=== PATIENT | female | born 1950 | race Caucasian/White ===

== ENCOUNTER → 2017-04-17 | Outpatient (CLI) | payer MEDICARE ==
[~2017-04-17] MED LIST: IOPAMIDOL 370 MG/ML 200 ML INFUS..BTL INJ ONE; SODIUM CHLORIDE 0.9% 50ML 100 ML ONE
[2017-04-17 13:58] LABS: BLOOD UREA NITROGEN 35 mg/dL (7-26); BUN/CREATININE RATIO 38 (6-25); CREATININE, SERUM 0.91 mg/dL (0.57-1.11); EST GLOMERULAR FILTRATION RATE > 60 ML/MIN (60-)
--- NOTE | 2017-04-18 12:25 | Diagnostic Imaging Report ---
Examination: Cervical and Intracranial CT Angiogram with Contrast History: Lumpiness of the left side. Comparison studies: None Technique: Axial images were obtained from the thoracic inlet. Coronal and sagittal images reconstructed from the axial data. Intravenous contrast: 100 mL of Isovue-370. Degree of stenosis at the carotid bulbs, if present, will be calculated using NASCET criteria where the smallest diameter at the location of stenosis is compared to the diameter of the more distal non-diseased vessel lumen. Findings: CTA neck: Aortic arch and major vessels: Patent. Nonstenotic atherosclerotic calcification Common carotid arteries: Patent. Retropharyngeal course of the distal right common carotid artery. Cervical carotid bifurcations: Right: Patent with nonstenotic calcification posteriorly. Retropharyngeal course. Left :Patent with nonstenotic near circumferential mixed plaque. Internal carotid arteries: Right: Patent. Nonstenotic atherosclerotic calcification of the distal cervical segment on the right. Left: Patent. Vertebral arteries: Patent. CTA head: Internal carotid arteries: Severe stenosis (greater than 70%) of the lacerum segment due to calcific plaque. Severe stenosis (greater than 70%) of the cavernous segment on the left due to near circumferential mixed plaque. Nonstenotic atherosclerotic calcification of the ophthalmic and clinoid segments bilaterally. Anterior cerebral arteries: Patent bilateral A1 and A2 segments. Middle cerebral arteries: Patent bilateral M1 and M2 segments. Posterior cerebral arteries: Patent. Vertebro-basilar system: Patent. Anatomical variants: Anterior communicating artery :Not visualized. Posterior communicating arteries: Patent bilaterally. Vertebral arteries: Right dominant IMPRESSION: 1. Severe stenosis (greater than 70%) of the lacerum segment of the right internal carotid artery and severe stenosis (greater than 70%) of the cavernous segment of the left internal carotid artery. 2. Nonstenotic atherosclerotic calcification of the aortic arch, right common carotid artery distally, bilateral carotid bifurcations, distal cervical segment of the right internal carotid artery and bilateral ophthalmic and clinoid segments. Signed by: Dr. Lauren Astorga M.D. on 04/18/2017 12:21 PM
== END ==
LOC: CT 12:49
PROVIDERS: ATTEND Internal Medicine Interventional Cardiology
DX: I65.23 Occlusion and stenosis of bilateral carotid arteries (principal)
CPT/HCPCS: 36415; 70496; 70498; 82565; 84520; Q9967

== ENCOUNTER → 2017-06-27 | Outpatient (CLI) | payer MEDICARE ==
[~2017-06-27] MED LIST changes: +GADOBENATE DIMEGLUMINE 0 ML IV ONE; -IOPAMIDOL 370 MG/ML 200 ML INFUS..BTL INJ ONE; -SODIUM CHLORIDE 0.9% 50ML 100 ML ONE
[2017-06-27 16:24] LABS: BLOOD UREA NITROGEN 34 mg/dL (7-26); BUN/CREATININE RATIO 41 (6-25); CREATININE, SERUM 0.82 mg/dL (0.57-1.11); EST GLOMERULAR FILTRATION RATE > 60 ML/MIN (60-)
== END ==
LOC: MRI 13:13
PROVIDERS: ATTEND Student in an Organized Health Care Education/Training Program
DX: Z01.818 Encounter for other preprocedural examination (principal); H93.12 Tinnitus, left ear
CPT/HCPCS: 36415; 82565; 84520

== ENCOUNTER → 2017-07-28 | Outpatient (CLI) | payer MEDICARE ==
[~2017-07-28] MED LIST changes: -GADOBENATE DIMEGLUMINE 0 ML IV ONE; +GADOBENATE DIMEGLUMINE 1 ML IV ONE; +LORAZEPAM INJ 2 MG/ML VIAL ONE
--- NOTE | 2017-07-28 17:29 | Diagnostic Imaging Report ---
EXAMINATION: MRI of the brain with and without contrast HISTORY: Left ear pulsatile tinnitus COMPARISON: Head CT on 04/17/2017 TECHNIQUE: Pre-contrast: Sagittal T2; axial T1-IR, T2, MPGR, DWI, FLAIR; Post-contrast: axial and coronal T1. Intravenous contrast: 20 mL of MultiHance. IMAGE QUALITY: Adequate. FINDINGS: Parenchyma: 1. Multiple periventricular, suarez radiata and centrum semiovale white matter T2 and FLAIR hyperintensities, some of the hyperintense foci are perpendicular to the wall of the lateral ventricles in the callosal septal interface, there is also an oval-shaped lesion near the right genu of the corpus callosum. Even though some of these lesions follow the distribution of demyelinating lesions; the presence of additional lacunar infarct favors chronic microvascular ischemic changes as the etiology 2. Small chronic lacunar infarcts in the bilateral suarez radiata, thalami an left putamen. 3. No mass or hemorrhage. No acute or chronic vascular insult. No abnormal enhancement. Skull: No abnormal signal intensity or enhancement. Major arteries: Expected flow voids present. Dural sinuses: Expected flow voids present. Ventricles: No hydrocephalus or displacement. Subarachnoid spaces: No abnormal signal intensity or enhancement. Brain volume: Normal for age. Foramen magnum: No mass, Chiari malformation, or basilar invagination. Sella: No gross mass. Paranasal/mastoid sinuses: Unremarkable. IMPRESSION: 1. Mild chronic microvascular ischemic changes. 2. Multiple small chronic lacunar infarct as detailed above. Signed by: Dr. Emperatriz Miller M.D. on 07/28/2017 5:25 PM
== END ==
LOC: MRI 15:07
PROVIDERS: ATTEND Student in an Organized Health Care Education/Training Program
DX: H93.12 Tinnitus, left ear (principal)
CPT/HCPCS: 36415; 70553; 82948; J2060

== ENCOUNTER 2017-11-28 06:35 | Observation (INO) | payer MEDICARE ==
--- NOTE | 2017-11-27 13:06 | Diagnostic Imaging Report ---
PROCEDURE: Frontal and lateral views of the chest. COMPARISON: None. INDICATIONS: PRE-OPERATIVE /KNEE SURGERY FINDINGS: Lines/tubes: None. Lungs: The lungs are well inflated and clear. There is no evidence of pneumonia or pulmonary edema. Pleura: There is no pleural effusion or pneumothorax. Heart and mediastinum: The cardiac silhouette is prominent. Surgical clips overlying the left lower lung field. Bones: No acute bony abnormality. Left upper quadrant suture line. IMPRESSION: 1. No acute cardiopulmonary disease. Dictated by: Lucho Martinez M.D. on 11/27/2017 at 13:13 Electronically approved by: Lucho Martinez M.D. on 11/27/2017 at 13:13
[2017-11-27 13:14] LABS: BASOPHILS # (AUTO) 0.1 (0.0-0.1); BASOPHILS % 0.7 % (0.0-1.0); EOSINOPHILS # (AUTO) 0.3 (0.0-0.4); HEMATOCRIT 44.2 % (34.2-44.1); HEMOGLOBIN 14.5 g/dL (12.0-16.0); LYMPHOCYTES # (AUTO) 3.4 (1.0-3.2); LYMPHOCYTES % 32.2 % (18.0-39.1); MEAN CORPUSCULAR HEMOGLOBIN 30.1 pg (28-32); MEAN CORPUSCULAR HGB CONC 32.8 g/dL (31-35); MEAN CORPUSCULAR VOLUME 91.9 fL (81-99); MONOCYTES # (AUTO) 0.7 (0.2-0.8); MONOCYTES % 6.2 % (4.4-11.3); NEUTROPHILS # (AUTO) 6.1 (2.1-6.9); NEUTROPHILS % 57.5 % (38.7-80.0); PLATELET COUNT 377 x10e3/uL (140-360); RED BLOOD COUNT 4.81 x10e6/uL (3.6-5.1); RED CELL DISTRIBUTION WIDTH 12.9 % (11.7-14.4)
[2017-11-27 13:32] LABS: ANION GAP 15.1 mmol/L (8-16); BLOOD UREA NITROGEN 30 mg/dL (7-26); BUN/CREATININE RATIO 39 (6-25); CALCIUM 9.6 mg/dL (8.4-10.2); CARBON DIOXIDE 25 mmol/L (22-29); CHLORIDE 107 mmol/L (98-107); CREATININE, SERUM 0.76 mg/dL (0.57-1.11); EST GLOMERULAR FILTRATION RATE > 60 ML/MIN (60-); GLUCOSE 114 mg/dL (74-118); POTASSIUM 4.1 mmol/L (3.5-5.1); SODIUM 143 mmol/L (136-145)
[~2017-11-28] VITALS: Ht 157.5 cm; Wt 106.6 kg
[~2017-11-28 06:35] MED LIST changes: +AMLODIPINE BESY10 MG PO; +ASPIR 8181 MG PO; +B COMPLEX1 EACH PO; +BUPROPION HCL100 MG PO; +BYSTOLIC10 MG PO; +CALCIUM MG ZINC PO; +CENTRUM SILVER1 EAC3 PO; +CLOPIDOGREL75 MG PO; +FUROSEMIDE40 MG PO; +GABAPENTIN300 MG PO; -GADOBENATE DIMEGLUMINE 1 ML IV ONE; +HERBAL LAXATIVE PO; +HYDROCHLOROTHIA25 MG PO; +IBUPROFEN200 MG PO; +LEVAMIR SC; -LORAZEPAM INJ 2 MG/ML VIAL ONE; +LOSARTAN POTAS100 MG PO; +METOPROLOL SUCC50 MG PO; +NOVOLOG100 UNITS1 SC; +SIMVASTATIN40 MG PO; +VITAMIN B-125000 MCG PO; +VITAMIN B12-FO1 EACH PO; +VITAMIN C500 MG/15 PO
[2017-11-28] MEDS ORDERED: BACITRACIN 50,000 UNIT VIAL ONE (06:59)
[2017-11-28] MEDS ORDERED: MUPIROCIN 2% OINT 22 GM TUBE ONE (06:59)
[2017-11-28] MEDS ORDERED: TRANEXAMIC ACID 1,000 MG/10 ML ML ONE (06:59)
[2017-11-28] MEDS ORDERED: DEXAMETHASONE SOD PHOS 10 MG/1 ML VIAL ONE (07:09)
[2017-11-28] MEDS ORDERED: CELECOXIB 200 MG CAP ONE (07:09)
[2017-11-28] MEDS ORDERED: GABAPENTIN 300 MG CAP ONE (07:09)
[2017-11-28] MEDS ORDERED: CEFAZOLIN SOD 2 GM/D5W 50ML 50 ML IV ONE (07:10)
[2017-11-28] MEDS ORDERED: ROPIVACAINE 246.25 MG, EPINEPHRINE HCL 1:1000 0.5 MG, CLONIDINE HCL 0.08 MG, KETOROLAC ... INJ ONE ×5 (08:00)
[2017-11-28] MEDS ORDERED: SODIUM CHLORIDE 0.9% 1000ML 1,000 ML IV SCH (10:05)
[2017-11-28] MEDS ORDERED: ZOLPIDEM TARTRATE 5 MG TAB PO PRN (10:15)
[2017-11-28] MEDS ORDERED: DOCUSATE SODIUM 100 MG CAP PO PRN (10:15)
[2017-11-28] MEDS ORDERED: HYDROCODONE/APAP 5MG-325MG TAB PO PRN (10:15)
[2017-11-28] MEDS ORDERED: DIPHENHYDRAMINE HCL INJ 50 MG/ML VIAL IM/IV PRN (10:15)
[2017-11-28] MEDS ORDERED: KETOROLAC TROMETHAMINE 30 MG/ML VIAL IV PRN (10:15)
[2017-11-28] MEDS ORDERED: ONDANSETRON HCL INJ 2 MG/ML VIAL IV PRN (10:15)
[2017-11-28] MEDS ORDERED: PROMETHAZINE HCL (IM) 25 MG/ML VIAL INJ PRN (10:15)
[2017-11-28] MEDS ORDERED: ACETAMINOPHEN 650 MG SUPP PR PRN (10:15)
[2017-11-28] MEDS ORDERED: HYDROMORPHONE 1MG/1ML INJ ONE (10:34)
[2017-11-28] MEDS ORDERED: FENTANYL CITRATE/PF 100MCG/2 ML INJ ONE ×2 (10:58→18:33)
--- NOTE | 2017-11-28 12:29 | Diagnostic Imaging Report ---
PROCEDURE: X-RAY LEFT KNEE, ONE OR TWO VIEWS COMPARISON: None. INDICATIONS:POST OPERATIVE FOR LEFT KNEE SURGERY FINDINGS: See conclusion. CONCLUSION: Status post total left knee replacement with surrounding soft tissue swelling, air and eileen consistent with recent surgery. No acute fractures. Russell Tinoco D.O. Dictated by: Russell Tinoco D.O. on 11/28/2017 at 11:08 Electronically approved by: Russell Tinoco D.O. on 11/28/2017 at 12:35
--- NOTE | 2017-11-28 13:00 | Operative Report ---
DATE OF PROCEDURE: November 28, 2017 BAR EXAMINER: Colin Shanks PA-C The patient was brought to the operating room for induction of anesthesia. Throughout this case, my PA's assistance was necessary for retraction of soft tissue and positioning of the extremity. This allows for efficient and technically successful execution of the operation and is considered medically necessary. PREOPERATIVE DIAGNOSES 1. Osteoarthritis, left knee. 2. Morbid obesity. POSTOPERATIVE DIAGNOSES 1. Osteoarthritis, left knee. 2. Morbid obesity. PROCEDURE PERFORMED: Left total knee arthroplasty *added complexity secondary to body mass index of 43. INDICATIONS: The patient is a 67-year-old lady who has end-stage arthritis of her left knee. She has failed conservative management and would like to proceed with a left total knee replacement. The risks and benefits of the procedure have been explained. The added surgical changes and risk for perioperative complications due to her BMI of 43 has been explained. She states she understands and feels like she has no other choice. She has been through gastric sleeve surgery. She states she understands and wishes to proceed. PROCEDURE: The patient was brought to the operating room and placed under general anesthetic. She received a regional block, prophylactic antibiotics, and tranexamic acid in the holding area. Her left lower extremity was prepped and draped in a sterile manner. Added time and personnel was necessary due to the patient's size. The extremity was exsanguinated and a proximal tourniquet was inflated to 350 mmHg. An anterior approach with a medial parapatellar arthrotomy was performed. Slightly more extensile approach was necessary. Soft tissue releases were performed to bring the knee up into flexion with the patella everted. Minimal medial and lateral dissections were performed to diminish the possibility of space. The cruciate ligaments, meniscal remnants, and marginal osteophytes were removed. A [employer] Kerry II posterior stabilized knee system was used. An extramedullary cutting guide was used to resect the proximal tibia. Some difficulty was encountered due to the abundant anterior soft tissue. Some of the cut had to be done freehand. The tibial baseplate was a size #3. The central fin punch was impacted. A drop kandi was used to check the alignment. The drop kandi was noted to align right with the first webspace and was felt to be appropriate. Attention was then directed towards the distal femur. An intramedullary cutting guide was used to resect the distal femur in 6 degrees of valgus and rotation referencing off of a combination landmarks including Griffin's line, the epicondylar axis, and the posterior condyles. The femoral component was a size #4. The anterior and posterior cuts were made. Trial reductions were performed. I felt a 9 mm ultra-congruent tibial insert provided appropriate soft tissue balancing in flexion and extension. The patella was resurfaced with a 29 mm x 9 mm patellar button. The thickness was checked before and after and was right around 22 mm. Patellar tracking was noted to be concentric. The trial implants were then all removed. A 100 mL premixed pericapsular SONYA injection was placed into the surrounding soft tissue. The knee was thoroughly irrigated with a shower-tip pulsatile lavage. The components were cemented into place using a single mix of PALACOS cement preloaded with antibiotics. Care was taken to remove extravasated cement. The wound was further irrigated while the cement cured. The arthrotomy was closed with interrupted #1 Ethibond. The knee was put through flexion and extension to ensure a secure closure. The skin was closed subcuticular Vicryl and eileen. A sterile Prevena Wound VAC was applied due to the abundant subcutaneous adipose tissue. The patient was extubated and transported to the recovery room in stable condition. Blood loss was minimal. All needle and sponge counts were correct. Job#: [id number] VAS
[2017-11-28] MEDS ORDERED: CEFAZOLIN SOD 1 GM/D5W 50ML 50 ML IV SCH (14:00)
[2017-11-28 14:15] VITALS: BP 140/64
[2017-11-28 14:25] VITALS: BP 140/64
[2017-11-28] MEDS ORDERED: CELECOXIB 100 MG CAP PO SCH (17:00)
[2017-11-28] MEDS ORDERED: DEXTROSE 50% SYRINGE 50 ML IV PRN (17:15)
[2017-11-28] MEDS: ACETAMINOPHEN 1000 MG/100 ML IV SCH (17:43)
[2017-11-28] MEDS: ASPIRIN 325 MG TAB PO SCH (17:44)
[2017-11-28] MEDS: CEFAZOLIN SOD 1 GM VIAL IV SCH (17:44)
[2017-11-28] MEDS: CELECOXIB 200 MG CAP PO SCH (17:44)
[2017-11-28] MEDS ORDERED: MIDAZOLAM HCL 2 MG/2 ML VIAL ONE (18:33)
[2017-11-28] MEDS ORDERED: ONDANSETRON HCL INJ 2 MG/ML VIAL ONE (18:48)
[2017-11-28] MEDS ORDERED: DEXAMETHASONE SOD PHOS INJ 4 MG/ML VIAL ONE (18:48)
[2017-11-28] MEDS ORDERED: SEVOFLURANE INHAL SOLN 250 ML PEN BTL ONE (18:48)
[2017-11-28] MEDS ORDERED: KETOROLAC TROMETHAMINE 30 MG/ML VIAL ONE (18:48)
[2017-11-28] MEDS ORDERED: PROPOFOL IV EMULSION 10 MG/ML 20 ML VIAL ONE (18:48)
[2017-11-28] MEDS ORDERED: ROPIVACAINE 0.5% 5 MG/ML 30 ML SDV ONE (18:51)
[2017-11-28] MEDS ORDERED: LIDOCAINE 2% /EPINEPHRINE 20 ML SDV INJ ONE (18:51)
[2017-11-28 20:00] VITALS: BP 135/73
[2017-11-28 20:25] VITALS: BP 127/61
[2017-11-28] MEDS: INSULIN LISPRO 100 UNIT/1 ML 3ML VIAL SQ SCH (21:04)
[2017-11-28] MEDS: HYDROCODONE/APAP 7.5MG-325MG 1 EA TAB PO PRN (22:02)
[2017-11-29] VITALS: BP 134/64
[2017-11-29] MEDS: HYDROCODONE/APAP 7.5MG-325MG 1 EA TAB PO PRN ×4 (02:00→15:06)
[2017-11-29 04:00] VITALS: BP 150/64
[2017-11-29] MEDS: ACETAMINOPHEN 1000 MG/100 ML IV SCH ×2 (05:15)
[2017-11-29 05:32] LABS: HEMATOCRIT 38.7 % (34.2-44.1); HEMOGLOBIN 12.5 g/dL (12.0-16.0)
[2017-11-29 08:00] VITALS: BP 161/67
[2017-11-29 08:09] VITALS: BP 161/67
[2017-11-29] MEDS: ASPIRIN 325 MG TAB PO SCH (08:16)
[2017-11-29] MEDS: CELECOXIB 200 MG CAP PO SCH (08:16)
[2017-11-29] MEDS: CEFAZOLIN SOD 1 GM VIAL IV SCH ×2 (08:16)
[2017-11-29] MEDS: INSULIN LISPRO 100 UNIT/1 ML 3ML VIAL SQ SCH ×3 (08:20→16:22)
[2017-11-29] MEDS ORDERED: ACETAMINOPHEN 1000 MG/100 ML IV PRN (10:15)
[2017-11-29] MEDS ORDERED: GABAPENTIN 300 MG CAP PO SCH (10:45)
[2017-11-29] MEDS ORDERED: GABAPENTIN 300 MG CAP PO PRN (11:15)
--- NOTE | 2017-11-29 11:23 | Consultation ---
DATE OF CONSULTATION: November 29, 2017 REASON FOR CONSULTATION: Medical management. HISTORY OF PRESENT ILLNESS: This is a 67-year-old white woman who underwent successful left total knee replacement yesterday on Tuesday, November 28, 2017. The patient has underlying history of extreme obesity, hypertension, and type-2 diabetes mellitus. The patient states her pain is well controlled. The patient did ambulate with physical therapy yesterday and today, but she requires maximum assistance. The patient states she is and lives alone. Blood work done today revealed hemoglobin 12.5 g/dL. The patient's BUN and creatinine on November 27, 2017, were 30 and 0.76 respectively. The patient underwent a chest x-ray on November 27, 2017, which revealed a prominent cardiac silhouette. Otherwise, it was unremarkable. REVIEW OF SYSTEMS GENERAL: The patient has lost 35 pounds since February 2017, but she did undergo bariatric surgery at that time. No fever or chills. HEENT: No headache. No vision changes. CARDIOVASCULAR: No chest pain. No shortness of breath. She has a slight chronic cough. GI: No nausea, vomiting, or constipation. : No UTI symptoms. NEUROMUSCULAR: The patient states her pain is well controlled in her left surgical knee, but she has arthritic pain in her right knee. ALLERGIES: NO KNOWN DRUG ALLERGIES. PAST MEDICAL HISTORY 1. Hypertensive heart disease. 2. Type-2 diabetes mellitus. 3. Extreme obesity. 4. Previous heavy tobacco smoker. 5. Peripheral arterial disease. 6. Dyslipidemia. 7. Diabetic peripheral neuropathy. 8. Chronic diastolic congestive heart failure. SURGICAL HISTORY 1. Left total knee replacement on November 28, 2017. 2. Laparoscopic cholecystectomy. 3. Right breast lumpectomy (benign). 4. Left lower extremity angioplasty in June 2017. 5. Cataract surgery. FAMILY HISTORY: The patient has a history of hypertension and type-2 diabetes mellitus. SOCIAL HISTORY: This woman is . She lives alone. 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 She was a smoker, but quit in 2004. Denies any alcohol use. HOME MEDICATIONS 1. Amlodipine 10 mg a day. 2. Aspirin 81 mg a day. 3. Bupropion 300 mg daily. 4. Clopidogrel 75 mg daily. 5. Vitamin B12 5,000 mcg daily. 6. Furosemide 20 mg daily. 7. Gabapentin 300 mg daily. 8. Hydrochlorothiazide 25 mg daily. 9. Ibuprofen 200 mg 2 pills every 6 hours prn arthritic joint pain. 10. NovoLog insulin subcutaneous as needed. 11. Losartan 100 mg nightly. 12. Metoprolol succinate 50 mg daily. 13. Centrum Silver once daily. 14. Bystolic 10 mg p.o. daily. 15. Simvastatin 40 mg nightly. 16. Vitamin C 500 mg daily. 17. Vitamin B complex once daily. 18. Calcium, magnesium and zinc complex once daily. 19. Herbal laxative once daily. 20. Levemir insulin 40 units subcutaneous daily. PHYSICAL EXAMINATION GENERAL: She is awake, alert and fully oriented. She is very pleasant and cooperative with exam. VITAL SIGNS: Height 5 feet 2 inches, weight 235 pounds. BMI is 43. Blood pressure is 168/70. Pulse 72. Respiratory rate 18. Temperature 95.8. Oxygen saturation is 97% on room air. INTEGUMENT: Skin is warm and dry. No pallor, jaundice or diaphoresis. HEENT: Anicteric sclerae with moist mucous membranes. NECK: Supple. CARDIOVASCULAR: Distant heart sounds. Regular rate and rhythm. LUNGS: No rales, no rhonchi, no wheezing. ABDOMEN: Obese, benign. EXTREMITIES: The left knee is currently dressed. The patient is currently wearing compression stockings. No obvious edema is appreciated. NEUROLOGIC: Intact, except she does have numbness in the plantar aspect of bilateral feet. DIAGNOSES 1. Status post left total knee replacement. 2. Peripheral arterial disease. 3. Type-2 diabetes mellitus with neuropathy. 4. Hypertensive heart disease. 5. Extreme obesity. Body mass index 43. 6. Chronic diastolic congestive heart failure. PLAN 1. Pain control. 2. Mobilize with physical therapy. 3. Will continue clopidogrel and aspirin since the patient has peripheral arterial disease. 4. Will stop twice-a-day full-strength aspirin. 5. Will also stop ketorolac and Celebrex since the patient is on clopidogrel and aspirin. 6. Blood glucose control. 7. Blood pressure control. 8. Will order incentive spirometry. Use 10 inspirations every hour from 7 a.m. to 7 p.m. I would like to thank Dr. Brewster for this generous consult. I spent 45 minutes in the care of the patient. Job#: [id number]
[2017-11-29 12:12] VITALS: BP 166/72
[2017-11-29] MEDS ORDERED: INSULIN LISPRO 100 UNIT/1 ML 3ML VIAL SQ SCH (15:00)
[2017-11-29 15:31] VITALS: BP 184/74
[2017-11-29] MEDS ORDERED: NORCO 7.5-3251 EACH PO (16:00)
[2017-11-29] MEDS ORDERED: LEVAMIR SC SCH (21:00)
[2017-11-29] MEDS ORDERED: INSULIN DETEMIR 100 UNIT/ML PEN SQ SCH (21:00)
[2017-11-29] MEDS ORDERED: SIMVASTATIN 40 MG TAB PO SCH (21:00)
[2017-11-29] MEDS ORDERED: LOSARTAN POTASSIUM 100 MG TAB PO SCH (21:00)
[2017-11-30] MEDS ORDERED: ASPIRIN 81 MG CHEW TAB PO SCH (09:00)
[2017-11-30] MEDS ORDERED: FUROSEMIDE 40 MG TAB PO SCH (09:00)
[2017-11-30] MEDS ORDERED: SIMVASTATIN 40 MG TAB PO SCH (09:00)
[2017-11-30] MEDS ORDERED: METOPROLOL SUCCINATE 50 MG TAB XL PO SCH (09:00)
[2017-11-30] MEDS ORDERED: AMLODIPINE BESYLATE 10 MG TAB PO SCH (09:00)
[2017-11-30] MEDS ORDERED: BUPROPION HCL 100 MG TAB PO SCH (09:00)
[2017-11-30] MEDS ORDERED: FUROSEMIDE 20 MG TAB PO SCH (09:00)
[2017-11-30] MEDS ORDERED: CLOPIDOGREL BISULFATE 75 MG TAB PO SCH (09:00)
[2017-11-30] MEDS ORDERED: HYDROCHLOROTHIAZIDE 25 MG TAB PO SCH (09:00)
[2017-11-30] MEDS ORDERED: NEBIVOLOL 10 MG TAB PO SCH (09:00)
== END 2017-11-29 17:25 | disposition home health service (06) ==
LOC: OR 06:35 → PACU V 10:10 → MED/SURG 13:43
PROVIDERS: ADMIT Specialist; ATTEND Specialist
DX: M17.12 Unilateral primary osteoarthritis, left knee (principal); E66.01 Morbid (severe) obesity due to excess calories; Z86.73 Personal history of transient ischemic attack (TIA), and cerebral infarction without residual deficits; Z68.41 Body mass index [BMI] 40.0-44.9, adult; E11.42 Type 2 diabetes mellitus with diabetic polyneuropathy; I11.0 Hypertensive heart disease with heart failure; I50.32 Chronic diastolic (congestive) heart failure; E11.51 Type 2 diabetes mellitus with diabetic peripheral angiopathy without gangrene
CPT/HCPCS: 27447; 36415 ×3; 71046; 73560; 80048; 82948 ×2; 85014; 85018; 85025; 86850; 86900; 93005; 96372; 97116; 97139; 97162; 97530 ×2; C1713; G0378 ×2; G8978; G8979; J0171; J0690 ×2; J1100 ×2; J1170; J1885; J2001; J2250; J2405; J2550; J2795; J7030

== ENCOUNTER 2018-01-29 14:46 | Outpatient (RCR) | payer MEDICARE ==
[~2018-01-29 14:46] MED LIST changes: +NORCO 7.5-3251 EACH PO
== END 2018-01-31 ==
LOC: PT 14:46
PROVIDERS: ATTEND Specialist
DX: Z96.652 Presence of left artificial knee joint (principal); Z47.1 Aftercare following joint replacement surgery; M17.0 Bilateral primary osteoarthritis of knee
CPT/HCPCS: 97010; 97110 ×5; 97140 ×3; 97163; G8978; G8979

== ENCOUNTER → 2018-03-02 | Outpatient (RCR) | payer MEDICARE | LOC: PT 02-02 13:04 | PROVIDERS: ATTEND Specialist | DX: M17.0 Bilateral primary osteoarthritis of knee (principal); Z96.652 Presence of left artificial knee joint; Z47.1 Aftercare following joint replacement surgery; M25.562 Pain in left knee; M25.662 Stiffness of left knee, not elsewhere classified; M24.562 Contracture, left knee; R26.2 Difficulty in walking, not elsewhere classified | CPT/HCPCS: 97110 ×6; 97139; 97140 ×2; G8978; G8979 ==

== ENCOUNTER 2018-03-30 14:47 | Outpatient (RCR) | payer MEDICARE | END 2018-04-02 | LOC: PT 14:47 | PROVIDERS: ATTEND Specialist | DX: Z96.652 Presence of left artificial knee joint (principal); Z47.1 Aftercare following joint replacement surgery; M17.0 Bilateral primary osteoarthritis of knee; M25.562 Pain in left knee; M25.662 Stiffness of left knee, not elsewhere classified; R26.2 Difficulty in walking, not elsewhere classified | CPT/HCPCS: 97110 ×4; 97139; 97140 ×2; G8979; G8980 ==

== ENCOUNTER → 2020-05-27 | Outpatient (CLI) | payer MEDICARE | LOC: RESP 08:57 | PROVIDERS: ATTEND Internal Medicine Interventional Cardiology | DX: J44.9 Chronic obstructive pulmonary disease, unspecified (principal); R06.00 Dyspnea, unspecified | CPT/HCPCS: 94060; 94664; 94729 ==

== ENCOUNTER → 2021-11-16 | Day surgery (SDC) | payer MEDICARE ==
[2021-11-11 14:14] LABS: BASOPHILS # (AUTO) 0.1 (0.0-0.1); BASOPHILS % 0.7 % (0.0-1.0); EOSINOPHILS # (AUTO) 0.2 (0.0-0.4); EOSINOPHILS % 2.3 % (0.0-6.0); HEMATOCRIT 46.5 % (34.2-44.1); HEMOGLOBIN 14.9 g/dL (12.0-16.0); LYMPHOCYTES # (AUTO) 2.8 (1.0-3.2); LYMPHOCYTES % 34.7 % (18.0-39.1); MEAN CORPUSCULAR HEMOGLOBIN 29.1 pg (28-32); MEAN CORPUSCULAR VOLUME 90.8 fL (81-99); MONOCYTES # (AUTO) 0.5 (0.2-0.8); MONOCYTES % 6.5 % (4.4-11.3); NEUTROPHILS # (AUTO) 4.5 (2.1-6.9); NEUTROPHILS % 55.6 % (38.7-80.0); PLATELET COUNT 333 x10e3/uL (140-360); RED BLOOD COUNT 5.12 x10e6/uL (3.6-5.1)
[2021-11-11 14:37] LABS: ALANINE AMINOTRANSFERASE 14 IU/L (0-55); ALBUMIN 3.6 g/dL (3.5-5.0); ALBUMIN/GLOBULIN RATIO 0.9 (0.8-2.0); ALKALINE PHOSPHATASE 93 IU/L (40-150); ANION GAP 11.9 mmol/L (8-16); BLOOD UREA NITROGEN 24 mg/dL (7-26); BUN/CREATININE RATIO 29 (6-25); CALCIUM 9.9 mg/dL (8.4-10.2); CARBON DIOXIDE 30 mmol/L (22-29); CHLORIDE 103 mmol/L (98-107); CREATININE, SERUM 0.83 mg/dL (0.57-1.11); GLUCOSE 248 mg/dL (74-118); POTASSIUM 3.9 mmol/L (3.5-5.1); SODIUM 141 mmol/L (136-145)
[2021-11-16] VITALS (14 sets, daily range): BP systolic 113–170; BP diastolic 63–95
[~2021-11-16] VITALS: Ht 157.5 cm; Wt 106.6 kg
[~2021-11-16] MED LIST changes: +ASPIRIN 325 MG TAB ONE; +FENTANYL CITRATE/PF 100MCG/2 ML INJ ONE; +HEPARIN SOD (PORCINE) 1000 UNIT/ML 30ML ONE; +HEPARIN SOD/SOD CHLORIDE 2,000 ML ONE; +IOPAMIDOL 300MG/ML 100 ML INFUS..BTL IV ONE; +LIDOCAINE HCL 1% LOCAL INJ 20 ML VIAL ONE; +MIDAZOLAM HCL 2 MG/2 ML VIAL ONE; +NITROGLYCERIN/D5W 200 MCG/ML 250 ML ONE; +PRASUGREL 10 MG TAB ONE; +SODIUM CHLORIDE 0.9% 1000ML 1,000 ML ONE; +VERAPAMIL HCL 2.5 MG/ML 2 ML VIAL ONE
== END | disposition home or self-care (01) ==
LOC: CATH LAB 10:48
PROVIDERS: ATTEND Internal Medicine Interventional Cardiology
DX: I70.213 Atherosclerosis of native arteries of extremities with intermittent claudication, bilateral legs (principal); I25.10 Atherosclerotic heart disease of native coronary artery without angina pectoris; I10 Essential (primary) hypertension; E11.9 Type 2 diabetes mellitus without complications; Z01.812 Encounter for preprocedural laboratory examination; Z20.822 Contact with and (suspected) exposure to COVID-19; Z79.02 Long term (current) use of antithrombotics/antiplatelets; Z79.82 Long term (current) use of aspirin; Z79.4 Long term (current) use of insulin; Z79.899 Other long term (current) drug therapy
CPT/HCPCS: 0223U; 36415 ×2; 37186; 37225; 75625; 76937; 80053; 82948; 85025; C1724; C1760; C1769 ×3; C1887; C1894; C2623; J1644; J2001; J2250; J3010; J7030; Q9967; 36247; 37224; 75716; 99152; 99153